=== PATIENT | male | born 1955 | race Hispanic/Latino ===

== ENCOUNTER 2017-03-20 18:43 | Emergency (ER) | payer SELFPAY ==
[2017-03-20] MEDS ORDERED: predniSONE 20 MG TAB ONE (19:26)
--- NOTE | 2017-03-20 19:29 | CT ---
CT CERVICAL SPINE 03/20/17 PROVIDED CLINICAL HISTORY: Neck pain. FINDINGS: There is no evidence for fracture or traumatic subluxation. Advanced cervical degenerative changes ar e seen. No prevertebral soft tissue swelling is evident. The visualized lung apices appear clear. IMPRESSION: No evidence for fracture or traumatic subluxation. POS: [facility]
== END 2017-03-20 20:02 | disposition home or self-care (01) ==
LOC: BURERS 18:43
DX: M47.812 Spondylosis without myelopathy or radiculopathy, cervical region (principal); G51.0 Bell's palsy; E78.5 Hyperlipidemia, unspecified; Z79.82 Long term (current) use of aspirin; Z79.899 Other long term (current) drug therapy
CPT/HCPCS: 72125; J7506

== ENCOUNTER 2018-05-04 22:53 | Emergency (ER) | payer SELFPAY ==
[2018-05-04] MEDS ORDERED: HYDROcodone/Acetaminophen 5/325 mg Tablet ONE (23:57)
--- NOTE | 2018-05-05 08:07 | RAD ---
RIGHT FEMUR 2 VIEWS: INDICATION: Right femur pain since Friday. FINDINGS: There is mild degenerative arthrosis involving the right hip. Foci of heterotopic ossification overl payton the right hip. Enthesopathic change is seen along the posterior aspect of the right femur. The re is mild degenerative arthrosis of the visualized right knee. No acute fracture is evident. Soft tissues are normal-appearing. IMPRESSION: No acute osseous abnormality. POS: [facility]
== END 2018-05-05 00:01 | disposition home or self-care (01) ==
LOC: BURERS 22:53
DX: S76.311A Strain of muscle, fascia and tendon of the posterior muscle group at thigh level, right thigh, initial encounter (principal); E78.5 Hyperlipidemia, unspecified; I10 Essential (primary) hypertension; G51.0 Bell's palsy; F17.210 Nicotine dependence, cigarettes, uncomplicated; V49.9XXA Car occupant (driver) (passenger) injured in unspecified traffic accident, initial encounter